=== PATIENT | female | born 1950 | race Caucasian/White ===

== ENCOUNTER 2017-04-15 10:09 | Inpatient (IN) | payer MEDICARE ==
[~2017-04-15] VITALS: Ht 162.6 cm; Wt 60.0 kg
--- NOTE | 2017-04-26 19:03 | MH ---
cc: KM SHAH DATE OF ADMISSION 04/27/2017 ADMISSION DIAGNOSIS Osteoarthritis of the right hip. HISTORY This patient is a 66-year-old female with significant right hip pain. The patient states that she had been followed by my partner Dr. Dyer for a long time for her low back and hip condition. The patient lives in the [facility]. The patient is having increasing arthritis of the right hip and pain. She has been previously told that she needs a hip replacement. She presented to the office of the undersigned in December and she has had ongoing conservative care of her right hip but has failed that. She was last seen in this office in the middle of April. The patient continues to have pain on the right side. She had a previous total hip on the left side and has done well from that. The patient is now having difficulty with her hip to the point that she is taking hydrocodone for pain. She presents now for elective hip replacement arthroplasty. PAST MEDICAL HISTORY, SOCIAL HISTORY AND FAMILY HISTORY See attached notes. REVIEW OF SYSTEMS See attached notes. PHYSICAL EXAMINATION VITAL SIGNS: 5 feet 6 inches, 150 pounds, 24.2 BMI. Blood pressure 110/78. Pain scale is 8. HEENT: Normocephalic, atraumatic. Pupils equal, round, reactive to light and accommodation. Extraocular motions intact. NECK: Supple. CHEST: Clear. HEART: Regular rate and rhythm. ABDOMEN: Soft, nontender, normoactive bowel sounds. MUSCULOSKELETAL: Right hip severe pain with internal and external rotation. Pain especially in the groin. Flexion limited to 80 degrees. Internal rotation is 20 degrees. There is a well-healed left lateral posterior incision of the hip. Normal range of motion, no pain. NEUROLOGIC: Examination within normal limits. VASCULAR: Examination within normal limits. IMPRESSION Osteoarthritis right hip, severe. PLAN Right total hip replacement arthroplasty, direct anterior exposure. CONSENT There are risks of surgery including infection, bleeding, loss of motion, continued pain, need for further surgery, neurologic and vascular injury. The patient understands theses issues and wishes to press on with surgery as outlined above. MD ELOISA Mcclellan/CHIDI /6:22 PM /6:57 PM ALEXX
[2017-04-27] MEDS ORDERED: EXPAREL PERI-ARTICULAR INJECTION (TOTAL VOL. 60 ML) P-ARTICULR SCH ×2 (06:00)
[2017-04-27] MEDS ORDERED: POVIDONE IODINE 5% (ANTISEPSIS KIT) 4 APPLICATIONS EACH NARE PRN (06:00)
[2017-04-27] MEDS ORDERED: VANCOMYCIN 1000 MG/NS 250 ML (for <70 kg) IV SCH ×2 (06:00)
[2017-04-27] MEDS ORDERED: CHLORHEXIDINE GLUCONATE 2 % 1 PACK (2 CLOTHS) TOPICAL PRN (06:00)
[2017-04-27] MEDS ORDERED: ceFAZolin 2 GM PREMIX 50 ML IV SCH (06:00)
[2017-04-27] MEDS ORDERED: TRANEXAMIC ACID INJ 700 MG in SODIUM CHLORIDE 0.9% INJ 100 ML IV SCH (06:00)
[2017-04-27] MEDS ORDERED: SODIUM CHLORID 0.9% 500 ML IV PRN (06:00)
[2017-04-27] MEDS ORDERED: METOPROLOL TARTRATE 25 MG TAB PO PRN (06:00)
[2017-04-27] MEDS ORDERED: INSULIN HUMAN REGULAR 1,000 UNITS/10 ML VIAL SQ PRN (06:00)
[2017-04-27] MEDS ORDERED: LACTATED RINGER'S 1000 ML IV PRN (06:00)
[2017-04-27] MEDS ORDERED: POVIDONE IODINE 7.5% SCRUB 118 ML BOTTLE TOPICAL SCH (06:00)
[2017-04-27] MEDS ORDERED: COZA100T PO (06:33)
[2017-04-27] MEDS ORDERED: AMLO10 PO (06:34)
[2017-04-27] MEDS ORDERED: RANI150T PO (06:34)
[2017-04-27 06:35] VITALS: BP 121/76; PULSE 62; RESP 18; TEMP 97.9; O2SAT 98
[2017-04-27] MEDS ORDERED: GENTAMICIN SULFATE 80 MG/2 ML VIAL ONE (06:55)
[2017-04-27] MEDS ORDERED: ACETAMINOPHEN 1000 MG/100 ML VIAL IV ONE (07:10)
[2017-04-27] MEDS ORDERED: DEXAMETHASONE SOD PHOS 4 MG/ML VIAL ONE (07:10)
[2017-04-27] MEDS ORDERED: ONDANSETRON HCL 4 MG/2 ML VIAL ONE (07:10)
[2017-04-27] MEDS ORDERED: fentaNYL CITRATE 250 MCG/5 ML AMP ONE (07:15)
[2017-04-27] MEDS ORDERED: MIDAZOLAM HCL 2 MG/2 ML VIAL ONE ×2 (07:15→12:41)
[2017-04-27] MEDS ORDERED: ceFAZolin 2 GM PREMIX 50 ML ONE (07:53)
[2017-04-27] MEDS ORDERED: SUGAMMADEX SODIUM 200 MG/2 ML VIAL IV PUSH ONE ×2 (09:02)
--- NOTE | 2017-04-27 09:25 | PD.OP ---
cc: Russell Dewitt MD Operative Report Date of Surgery: Apr 27, 2017 Preoperative Diagnosis: Osteoarthritis right hip, severe Postoperative Diagnosis: Same Procedure: Right total hip replacement arthroplasty, direct anterior exposure Anesthesia: Gen. Surgeon: Russell Dewitt Electric Fork Operator(s): SAMARA Gayle Operation and Findings: EBL: 150 cc INDICATION: This patient presents with significant hip pain related to severe osteoarthritis of the right hip. Despite extensive conservative care this patient continues to be painful and now presents for surgical treatment. NOTE: Actually SAMARA Gayle was present for the entire surgical procedure as my hotel assistant manager. In my medical opinion her skill and care was necessary for the proper management of this patient. COMPONENTS: COMPANY: [employer] CUP: [place], 50 mm, 100 series, gription surface LINER: Altrx 32, neutral STEM: Corail, size 11, standard offset, hydroxyapatite-coated HEAD: 32 mm, ceramic, +1, 10/14 taper PROCEDURE: This patient was brought to the operating room and anesthetized in the supine position and positioned on the fracture table with both legs held extended. The right hip and leg was scrubbed with alcohol followed by Hibiclens followed by ChloraPrep and draped sterilely. Antibiotics were given within routine time window and a timeout was done. A 4 inch incision was made starting 2 cm distal and 2 cm lateral to the anterior superior iliac spine. The fascia hugo was opened longitudinally. The interval between the fascia hugo and the rectus was opened down to the capsule of the hip joint. Retractors were positioned allowing good visualization of the capsule. This was opened longitudinally and flaps were created. Stay sutures were utilized. Exposure was excellent. The neck was cut at the proper location using fluoroscopy as a guide. The head was removed. Deep retractors were positioned allowing good visualization of the acetabulum. Acetabulum was deepened down to the floor starting with a proper size reamer and reaming up to 49 mm. A trial was utilized. Fluoroscopy was used to check position and confirmed satisfactory alignment. The rim was reamed with a 50 mm reamer and the final cup was positioned in approximately 20 of anteversion and 40-45 of abduction. Position was satisfactory. A single hole eliminator was positioned followed by the final liner. The lifting hook was utilized. The leg was dropped to the floor, maximally externally rotated and brought across the midline. Retractors were positioned. A box osteotome was utilized followed by progressive broaching to the proper stem size. Trial reduction showed excellent alignment and fit. With 60 of external rotation the leg was dropped to the floor without evidence of anterior subluxation. The wound was irrigated. The final stem was inserted and was found to be very stable. The final reduction using the final head. Stability was as previously noted. Intraoperative x-rays were taken. The wound was irrigated copiously. Hemostasis was controlled. Local anesthesia was utilized. The capsule was repaired with #2 Tycron sutures. The fascia hugo was repaired with running 0 PDS on a loop. Subcutaneous tissue was approximated with 2-0 Vicryl and skin with running intradermal 3-0 Vicryl followed by Steri-Strips. A sterile dressing was applied. The patient was awakened and taken to the recovery room in satisfactory condition. FINDINGS: There was severe osteoarthritis of the right hip with periarticular osteophytes. There was a severely misshapen femoral head consistent with ongoing aggressive osteoarthritis. The final solution was very satisfactory. No complication was appreciated. Russell Dewitt MD Apr 27, 2017 09:25
[2017-04-27] MEDS ORDERED: HYDR-3580 PO (09:26)
[2017-04-27] MEDS ORDERED: XARE10TA PO (09:26)
[2017-04-27] MEDS ORDERED: SODIUM CHLORIDE 0.9% FLUSH 5 ML FLUSH IVF PRN (09:30)
[2017-04-27] MEDS ORDERED: MISCELLANEOUS PHARMACY INFORMATION XX ONE (09:30)
[2017-04-27] MEDS ORDERED: MORPHINE SULFATE 30 MG/30 ML PCA IV SCH (09:30)
[2017-04-27] MEDS ORDERED: MISCELLANEOUS NURSING INFORMATION XX PRN (09:30)
[2017-04-27] MEDS ORDERED: Post-op Orders (for Pharmacy) MISC XX ONE (09:30)
[2017-04-27] MEDS ORDERED: NALOXONE HCL 0.4 MG/ML AMP IV PRN (09:30)
[2017-04-27] MEDS ORDERED: MORPHINE SULFATE 8 MG/ML INJ IM PRN (09:30)
[2017-04-27] MEDS ORDERED: DO NOT ADM ANY ANTICOAGULANT DRUGS PRN (09:45)
[2017-04-27] MEDS: LACTATED RINGER'S 1000 ML INJ 1,000 ML IV SCH ×2 (09:50→20:00)
[2017-04-27] MEDS ORDERED: *morphine SULFATE 8 MG/ML PERIprocedure ONLY ONE ×2 (10:01→10:08)
[2017-04-27 10:40] VITALS: BP 109/65; PULSE 66; RESP 18; TEMP 96.7; O2SAT 100
[2017-04-27] MEDS ORDERED: PROPOFOL 200 MG/20 ML AMP IV ONE (12:00)
[2017-04-27] MEDS ORDERED: SODIUM CHLOR 0.9% (EXCEL) INJ 250 ML IV ONE (12:00)
[2017-04-27] MEDS ORDERED: LACTATED RINGER'S 1000 ML INJ 1,000 ML IV ONE (12:00)
[2017-04-27] MEDS ORDERED: ePHEDrine/NS 25 MG/5 ML SYR IV ONE (12:00)
--- NOTE | 2017-04-27 13:09 | HHI.FF ---
Face to Face Verification Diagnosis: (1) Right hip pain (2) Osteoarthritis of right hip Physical Therapy Gait training, Safety evaluation, Transfer training, bed to chair Hip: Total hip, Protocol: Right, Progress to weight bearing Right LE Weight Bearing: WB as tolerated Additional Instructions PT 4 days/wk for 2 weeks. WBAT RLE. R ZOHAIB, anterior, protocol. Gait training. Walker as needed. Nursing RN Days per Week: 2 x Week(s): 1 Dressing Changes: Do not change dressing Additional Instructions Hold dressing changes unless saturated. Vitals assessment. I have seen patient Alisa Anderson on 04/27/17. My clinical findings support the need for the requested home health care services because: Limited ability to care for self High risk of falls I certify that my clinical findings support that this patient is homebound because: Post-op weakness Unsteady gait/balance Shakira Schaffer Apr 27, 2017 13:09
[2017-04-27] MEDS ORDERED: COMMODE 3-IN-11 MIS (13:10)
[2017-04-27] MEDS ORDERED: WALKER WHEELS/F1 MIS (13:10)
[2017-04-27] MEDS: PCA - TOTAL MG MORPHINE DELIVERED PER SHIFT SCH ×2 (14:00→21:41)
[2017-04-27 16:00] VITALS: BP 118/65; PULSE 73; RESP 19; TEMP 96; O2SAT 98
[2017-04-27 20:00] VITALS: BP 121/70; PULSE 80; RESP 16; TEMP 97; O2SAT 98
[2017-04-27] MEDS: FAMOTIDINE 20 MG TAB PO SCH (20:00)
[2017-04-27] MEDS: MAGNESIUM HYDROXIDE SUSP 30 ML CUP PO SCH (20:01)
[2017-04-27] MEDS: SODIUM CHLORIDE 0.9% FLUSH 5 ML FLUSH IVF SCH (20:01)
--- NOTE | 2017-04-27 20:48 | RADRPT ---
EXAM DATE/TIME: 04/27/2017 07:52 [facility] COMPARISON: No previous studies available for comparison. INDICATIONS : Right anterior hip replacement. MEDICAL HISTORY : Hypertension. Osteoarthritis. Hepatitis A. GERD. SURGICAL HISTORY : Left anterior hip replacement, ORIF of the left ankle, hardware removal of the left ankle. ENCOUNTER: Initial ACUITY: 1 day PAIN SCORE: Non-responsive. LOCATION: Right anterior hip. FINDINGS: A two view examination of the right hip was performed in the OR. There is a bipolar hip prosthesis in place. The prosthetic components are well placed. Skin diana are seen. CONCLUSION: Good placement of a bipolar right hip prosthesis. Terry Fischer MD on April 27, 2017 at 20:45 Board Certified Radiologist. This report was verified electronically.
[2017-04-27] MEDS ORDERED: SENNOSIDES 8.6 MG TAB PO SCH (21:00)
[2017-04-27] MEDS: ACETAMINOPHEN/HYDROcodone 325 MG/7.5 MG TAB PO PRN (22:45)
[2017-04-28] VITALS: BP 120/71; PULSE 89; RESP 17; TEMP 97.9; O2SAT 97
[2017-04-28] MEDS: ACETAMINOPHEN/HYDROcodone 325 MG/7.5 MG TAB PO PRN ×4 (02:57→13:15)
[2017-04-28 04:05] VITALS: BP 128/75; PULSE 92; RESP 16; TEMP 97.5; O2SAT 97
[2017-04-28] MEDS: PCA - TOTAL MG MORPHINE DELIVERED PER SHIFT SCH (05:35)
[2017-04-28 07:30] LABS: REVIEW FLAG FINAL
[2017-04-28] MEDS: FAMOTIDINE 20 MG TAB PO SCH (07:43)
[2017-04-28] MEDS: MAGNESIUM HYDROXIDE SUSP 30 ML CUP PO SCH (07:45)
[2017-04-28 08:00] VITALS: BP 133/76; PULSE 85; RESP 18; TEMP 98.5; O2SAT 96
[2017-04-28 08:48] VITALS: O2SAT 99
[2017-04-28] MEDS ORDERED: RIVAROXABAN 10 MG TAB PO SCH (09:00)
[2017-04-28] MEDS ORDERED: LOSARTAN 50 MG TAB PO SCH (09:00)
[2017-04-28] MEDS: SODIUM CHLORIDE 0.9% FLUSH 5 ML FLUSH IVF SCH (09:00)
[2017-04-28] MEDS: LACTATED RINGER'S 1000 ML INJ 1,000 ML IV SCH (10:20)
[2017-04-28 12:00] VITALS: BP 116/67; PULSE 75; RESP 18; TEMP 98; O2SAT 96
--- NOTE | 2017-04-28 13:11 | HHI.DCPOC ---
Discharge Care Plan Diagnosis: (1) Right hip pain (2) Osteoarthritis of right hip Your Health Problems Are: Incision/Drains Swelling Goals to Promote Your Health * To prevent worsening of your condition and complications * To maintain your health at the optimal level Directions to Meet Your Goals Take your medications as prescribed Follow your dietary instruction Follow activity as directed Keep your appointments as scheduled Take your immunizations and boosters as scheduled If your symptoms worsen call your PCP, if no PCP go to Urgent Care Center or Emergency Room Smoking is Dangerous to Your Health. Avoid second hand smoke Call the 24-hour hour crisis hotline for domestic abuse at Shakira Schaffer Apr 28, 2017 13:11
--- NOTE | 2017-04-28 13:12 | HHI.DS ---
Discharge Summary Admission Date Apr 27, 2017 at 05:17 Discharge Date: Apr 28, 2017 Admitting Diagnosis see below Diagnosis: (1) Right hip pain Diagnosis: Principal (2) Osteoarthritis of right hip Diagnosis: Principal Procedures Right total hip arthroplasty, Direct anterior approach Brief History This is a 66 year old female patient CBC/BMP: 04/28/17 0658 Significant Findings Laboratory Tests Test 04/28/17 06:58 Hematocrit 34.0 % (35.0-46.0) Pt Condition on Discharge: Stable Discharge Disposition: Disch w/ Home Health Serv Discharge Instructions Diet Instructions: As Tolerated, No Restrictions, High Fiber Diet Activities You Can Perform: Weight Bearing as Alejandro Activities to Avoid: Strenuous Activity Additional Activity Instruc.: R ZOHAIB anterior protocol New Medications: Commode 3-in-1 (Commode 3-in-1) 1 Mis Mis 1 EA .ROUTE DIRECTED #1 Ref 0 EA Walker with Front Wheels (Walker with Front Wheels) 1 Mis Mis 1 EA .ROUTE DIRECTED #1 Ref 0 EA Hydrocodone-Acetaminophen (Hydrocodone-Acetaminophen) 7.5-325 mg Tab 1 TAB PO Q4H PRN PAIN LESS THAN 5 ON SCALE #50 TAB Rivaroxaban (Xarelto) 10 Mg Tab 10 MG PO Q24H Prevent Blood Clot #25 TAB Continued Medications: Amlodipine (Norvasc) 10 Mg Tab 10 MG PO DAILY Blood Pressure Management #30 Ref 0 TAB Losartan (Cozaar) 100 Mg Tab 100 MG PO DAILY Blood Pressure Management #30 Ref 0 TAB Ranitidine (Ranitidine) 150 Mg Tab 150 MG PO BID Heartburn Management #60 Ref 0 TAB Shakira Schaffer Apr 28, 2017 13:12
--- NOTE | 2017-04-28 13:16 | PD.ORT.PN ---
Subjective Subjective Remarks Doing well. Moderate right hip pain but 'very tolerable with pain pills'. She is eager to get home today. Did well w PT today. Has walked 2-3 times independently. No CP or SOB. Urinating well. Objective Vitals Vital Signs Date Time Temp Pulse Resp B/P Pulse Ox O2 Delivery O2 Flow Rate FiO2 04/28/17 12:00 98.0 75 18 116/67 96 04/28/17 08:48 99 21 04/28/17 08:00 98.5 85 18 133/76 96 04/28/17 05:35 16 04/28/17 04:05 97.5 92 16 128/75 97 04/28/17 00:00 97.9 89 17 120/71 97 04/27/17 21:41 16 04/27/17 20:00 97.0 80 16 121/70 98 04/27/17 16:00 96.0 73 19 118/65 98 04/27/17 14:00 18 I/O 04/27/17 04/27/17 04/27/17 04/28/17 04/28/17 04/28/17 07:00 15:00 23:00 07:00 15:00 23:00 Intake Total 800 ml 2234 ml 1143 ml Output Total 430 ml 1800 ml 1550 ml Balance 370 ml 434 ml -407 ml Intake Oral 0 ml 1320 ml 480 ml IV Total 100 ml 914 ml 663 ml Other 700 ml Output Urine Total 280 ml 1800 ml 1550 ml Estimated Blood Loss 150 ml # Bowel Movements 0 Result Diagram: 04/28/17 0658 Procedures Right total hip arthroplasty, Direct anterior approach Objective Remarks Sitting up in chair, NAD VSS RLE Anterior hip dressing c/d/i, mild swelling and warmth, no redness thigh and calf both supple, neg homans distal +motor at, +sens, +nvi Assessment & Plan Ortho Post Op Day #: 1 Problem List: (1) Right hip pain (2) Osteoarthritis of right hip Assessment and Plan pod#1 s/p R ZOHAIB, direct anterior approach 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 Xarelto 10mg qd. Hold incision dressing changes unless saturated. PT - WBAT RLE. ZOHAIB protocol. itten. D/C home a hhc today after PT class. F/U in 2 weeks as scheduled. F2F written. Shakira Schaffer Apr 28, 2017 13:16
== END 2017-04-28 16:42 | disposition home health service (06) | DRG 470 ==
LOC: HSDI 04-27 05:17 → EDSEX 04-27 07:30 → N06B 04-27 10:42
PROVIDERS: ADMIT Orthopaedic Surgery Orthopaedic Surgery of the Spine; ATTEND Orthopaedic Surgery Orthopaedic Surgery of the Spine
PROC: 0SR904A Replacement of Right Hip Joint with Ceramic on Polyethylene Synthetic Substitute, Uncemented, Open Approach (ICD-10-PCS; principal; 2017-04-27 07:19)
DX: M16.11 Unilateral primary osteoarthritis, right hip (principal); I10 Essential (primary) hypertension; K21.9 Gastro-esophageal reflux disease without esophagitis; M54.9 Dorsalgia, unspecified
CPT/HCPCS: 73502; 76000; 85014; 85018; 86850; 86900; 86901; 86920; 94150; C1776; C9290; J0131; J0690; J1100; J1580; J2250; J2270; J2405; J3010; J3370; J7050; J7120